=== PATIENT | female | born 1965 | race Caucasian/White ===

== ENCOUNTER 2022-07-09 06:28 | Day surgery (SDC) | payer MEDICAID ==
[~2022-07-09] VITALS: Ht 157.5 cm; Wt 71.8 kg
[2022-07-09] VITALS (8 sets, daily range): BP systolic 115–142; BP diastolic 51–94
[2022-07-09] MEDS ORDERED: LAMO200T10 PO (07:00)
[2022-07-09] MEDS ORDERED: ARIP400S3 IM (07:00)
[2022-07-09] MEDS ORDERED: ESCI20TA36 PO (07:01)
[2022-07-09 07:31] LABS: BASOPHILS # (AUTO) 0.1 X10'3 (0-0.2); BASOPHILS % (AUTO) 0.7 % (0-1); EOSINOPHILS # (AUTO) 0.3 X10'3 (0-0.9); EOSINOPHILS % (AUTO) 4.1 % (0-6); HEMATOCRIT 32.4 % (35.0-45.0); HEMOGLOBIN 10.2 g/dl (12.0-16.0); LYMPHOCYTES # (AUTO) 1.5 X10'3 (1.1-4.8); LYMPHOCYTES % (AUTO) 19.4 % (21-51); MEAN CORPUSCULAR HEMOGLOBIN 24.1 PG (27.0-31.0); MEAN CORPUSCULAR HGB CONC 31.6 g/dL (33.0-36.5); MEAN CORPUSCULAR VOLUME 76.2 FL (78-98); MEAN PLATELET VOLUME 6.7 FL (7.4-10.4); MONOCYTES # (AUTO) 0.7 X10'3 (0-0.9); MONOCYTES % (AUTO) 9.9 % (2-12); NEUTROPHILS # (AUTO) 4.9 X10'3 (1.8-7.7); NEUTROPHILS % (AUTO) 65.9 % (42-75); PLATELET COUNT 359 X10'3 (140-440); RED BLOOD COUNT 4.25 X10'6 (4.20-5.60); RED CELL DISTRIBUTION WIDTH 19.2 % (11.5-14.5); WHITE BLOOD COUNT 7.5 X10'3 (4.5-11.0)
[2022-07-09 08:04] LABS: ANISOCYTOSIS 2+; MICROCYTOSIS 1+; PLATELET ESTIMATE NORMAL
[2022-07-09 08:05] LABS: ELLIPTOCYTES 1+; HYPOCHROMASIA 1+
[2022-07-09 08:07] LABS: POLYCHROMASIA FEW
[2022-07-09] MEDS ORDERED: heparin sodium, porcine/PF 100unit/ml 5ML syringe ONE (08:27)
[2022-07-09] MEDS ORDERED: midazolam 1 mg/ML 2ml injection ONE ×2 (08:27→09:12)
[2022-07-09] MEDS ORDERED: fentaNYL/PF 50MCG/1 ML 2ML syringe ONE ×2 (08:28→09:12)
[2022-07-09] MEDS ORDERED: LIDOcaine 1% 30ml preserv. free vial ONE (08:28)
[2022-07-09] MEDS ORDERED: gelatin sponge, absorbable (Gelfoam 12-7MM) sponge TP ONE (09:51)
== END 2022-07-09 12:40 | disposition home or self-care (01) ==
LOC: SSTAY O 06:28
PROVIDERS: ATTEND Radiology Vascular & Interventional Radiology
DX: C18.7 Malignant neoplasm of sigmoid colon (principal); C78.7 Secondary malignant neoplasm of liver and intrahepatic bile duct; F41.9 Anxiety disorder, unspecified; F31.9 Bipolar disorder, unspecified; F12.20 Cannabis dependence, uncomplicated; Z88.0 Allergy status to penicillin; Z88.5 Allergy status to narcotic agent; Z79.899 Other long term (current) drug therapy; Z87.891 Personal history of nicotine dependence
CPT/HCPCS: 36415; 36561; 47000; 76937; 76942; 77001; 85025; 85610; 99152; 99153; C1788; J1642; J2250; J3010; J3490; J7030; 85008; A4620; A9270; C1894